=== PATIENT | female | born 1970 | race Caucasian/White ===

== ENCOUNTER → 2016-12-18 | Outpatient (CLI) | payer OTHER ==
[2016-11-09 12:59] VITALS: BP 128/89
--- NOTE | 2016-12-18 09:27 | RAD ---
Right hip two views Indication: Right hip pain. 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 Enthesopathy of the great er trochanter noted. There is no cortical lucency or malalignment. Impression: No acute right hip fracture. Mild degenerative changes. Reported By:
--- NOTE | 2016-12-18 09:34 | RAD ---
HISTORY: Nontraumatic right knee pain, chronic Study: Right knee three view Comparison: None Findings: There is no evidence for acute bone or acute joint abnormality. No fracture, lytic, or blastic lesio n is identified. No joint erosion or joint effusion is present. There is mild degenerative medial co mpartment narrowing. IMPRESSION: Mild degenerative medial compartment narrowing Reported By:
== END ==
LOC: RAD 08:53
PROVIDERS: ATTEND Internal Medicine
DX: Z02.71 Encounter for disability determination (principal)
CPT/HCPCS: 73501; 73560

== ENCOUNTER 2017-07-04 20:20 | Emergency (ER) | payer SELFPAY ==
[2017-07-04 20:41] VITALS: BP 134/89; BMI 29.2
[2017-07-04] MEDS ORDERED: BACTRIM DS TAB PO ONE ×2 (23:06→23:16)
[2017-07-04] MEDS ORDERED: ROCEPHIN VIAL 1 GM IM ONE (23:06)
[2017-07-04] MEDS ORDERED: TORADOL 60 MG VIAL IM ONE (23:07)
--- NOTE | 2017-07-04 23:11 | DR.GENAD ---
HPI - PCP Primary Care Physician: NFD - Complaint/Symptoms Chief Complaint Doctors Comments: Patient complains of red raised area on the right side for her abdomen for the past four days getting worst with scant drainage at times. she has been usining neosporin ointment without improvement. states she had a similar lesion about a year ago that was staph infection and they keep coming back at different locations. She denies fever, chills, nausea or vomiting. States she do not have a local doctor. States her tetanus shot is up to date. Chief Complaint:: PATIENT HAS A RED AREA LOCATED ON THE RIGHT LOWER QUANDRANT OF ABDOMEN Self Treatment fo Chief Complaint: POLYSPORIN - Nurses notes reviewed Nurses Notes Review: Yes - Source History Provided: Patient - Mode of Arrival Mode of Arrival: Ambulatory - Timing Onset of Chief Complaint: 07/01/17 Came on: Gradually - Duration Duration: Constant How lon Duration: Days - Location Location: right abdominal walal - Severity Severity: Mild - Modifying Factors Worsens:: nothing Improves:: nothing PMH - PMH Past Medical History: Yes Past Medical History: Arthritis, Headaches Past Medical History Comment: UTI, WEAK BLADDER Past Surgical History: Yes Surgical History: Cholecystectomy, 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, 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 Surgery - Family History History of Family Medical Conditions: Yes Family Medical History: Cancer, [place], Hypertension - Social History Does patient currently use any type of tobacco product: No Have you used tobacco products in the last 12 months: No Type of Tobacco Use: None How many years tobacco product used: 3 Alcohol Use: None Do you use any recreational Drugs:: No Lives With: Spouse Lives Where: Home - infectious screening In the last 2 months have you had wt loss of >10#?: NO Have you had fever, night sweats or hemotysis?: No Have you traveled outside the country in the last 6 months?: No Isolation: Standard ROS - Review of Systems Constitutional: No Symptoms Reported. negative: See HPI, Chills, Diaphoresis, Fever, Malaise, Weakness, Irritable, Fatigue, Loss of Appetite, Other Eyes: No Symptoms Reported ENTM: No Symptoms Reported. negative: See HPI, Ear Pain, Ear Discharge, Pulling on Ears, Hearing Loss, Nose Pain, Nose Discharge, Epistaxis, Nose Congestion, Mouth Pain, Mouth Swelling, Loose Teeth, Drooling, Throat Pain, Throat Swelling, Ear Foreign Body Respiratoy: No Symptoms Reported. negative: See HPI, Productive Cough, Non- Productive Cough, Moist Cough, Dry Cough, Hacking Cough, Barking Cough, Brassy Cough, Orthopnea, Short of Breath, Stridor, Wheezing, Hemoptysis, Other Cardiovascular: No Symptoms Reported Gastrointestinal/Abdominal: No Symptoms Reported, Abdominal Pain (right anterior abdominal wall pain). negative: See HPI, Constipation, Diarrhea, Nausea, Vomiting, Food Intolerance, Other Genitourinary: No Symptoms Reported. negative: See HPI, Discharge, Dysuria, Frequency, Hematuria, Pain, Bleeding, Other Neurological: No Symptoms Reported. negative: See HPI, Anxiety, Depressed, Emotional Problems, Headache, Numbness, Paresthesia, Pre-existing Deficit, Seizure, Tingling, Tremors, Weakness, Dizziness, Problems Walking, Speech Problem, Other Musculoskeletal: No Symptoms Reported Integumentary: No Symptoms Reported, Change in Color, Lesions (right abdominal 4 cm pustular lesion) Hematologic/Lymphatic: No Symptoms Reported. negative: See HPI, Anemia, Blood Clots, Easy Bleeding, Easy Bruising, Swollen Glands, Lymphadenopathy, Other Endocrine: No Symptoms Reported Psychiatric: No Symptoms Reported. negative: See HPI, Anxiety, Depression, Hallucinations, Excessive crying, Suicidal, Other PE - Vital Signs Vitals: Temperature 97.8 F Pulse Rate 86 Respiratory Rate 20 Blood Pressure [Left Arm] 128/89 Blood Pressure 134/89 O2 Sat by Pulse Oximetry 100 - General Limitations: No Limitations General Appearance: Alert, In No Apparent Distress - Head Head Exam: Normal Inspection, Atraumatic, Normocephalic - Eyes Eye exam: Normal Appearance, PERRL, EOMI. negative: Scleral Icterus, Conjunctival Injection, Nystagmus, Miosis, Mydrasis, Periorbital Swelling, Periorbital Tenderness, Other - ENT ENT Exam: Normal Exam, Normal Oropharynx, Normal External Ear Exam, Mucous Membranes Moist, TM's Normal Bilaterally External Ear Exam: Normal External Inspection TM/Canal Exam: Bilateral Normal Nose Exam: Normal Nose Exam Mouth Exam: Normal Inspection Throat Exam: Normal Inspection. negative: Tonsillar Erythema, Tonsillomegaly, Tonsillar Exudate, R Peritonsillar Mass, L Peritonsillar Mass, Muffled Voice, Other - Neck Neck Exam: Normal Inspection, Full ROM, Trachea Midline. negative: Tenderness, Meningismus, Lymphadenopathy, Thyromegaly, Other - Chest Chest Inspection: Normal Inspection, Symmetric Chest Wall Rise. negative: Tenderness, Rash, Abscess, Other - Respiratory Respiratory Exam: Normal Lung Sounds Bilat Respiratory Exam: Bilateral Clear to Auscultation - Cardiovascular Cardiovascular Exam: Regular Rate, Normal Rhythm, Normal Heart Sounds. negative : Bradycardia, Tachycardia, Irregular Rhythm, Systolic Murmur, Diastolic Murmur , Rubs, Gallop, Clicks, JVD, +S1, +S2, +S3, +S4, Other - Abdominal Exam Abdominal Exam: Normal Inspection, Normal Bowel Sounds, Soft, Other (right hypogastric abdomnal wall wtih 4 cm pustular lesion with erythema; erythema anterior abdominal area; no discharge) Abdominal Tenderness: RUQ, Mild - Extremities Extremities Exam: Normal Inspection, Full ROM, Normal Capillary Refill. negative: Tenderness, Edema, Joint Swelling, Calf Tenderness, Other - Back Back Exam: Normal Inspection, Full ROM. negative: Tenderness, (R) CVA Tenderness, (L) CVA Tenderness, Muscle Spasm, Paraspinal Tenderness, Vertebral Tenderness, Rashes, (R) Sciatic Notch Tenderness, (L) Sciatic Notch Tendern, (R ) Straight Leg Raise, (L) Straight Leg Raise, Other - Neurologic Neurological Exam: Alert, Oriented X3, CN II-XII Intact, Normal Gait - Psychiatric Psychiatric Exam: Normal Affect, Normal Mood. negative: Depressed, Agitated, Anxious, Flat Affect, Manic, Homicidal Ideation, Suicidal Ideation, Other - Skin Skin Exam: Warm, Dry, Intact, Normal Color - Diagnosis Discharge Problem: Cellulitis of right abdominal wall, Furuncle - Discharge Plan Disposition: 01 HOME, SELF-CARE Condition: Stable Prescriptions: Cephalexin [KEFLEX CAP 500 MG *] 500 mg PO TID #30 cap Ibuprofen 800 mg PO TID PRN #30 tablet PRN Reason: Pain/Inflammation Mupirocin Oint [BACTROBAN OINT 2%] 1 applic EXT BID #22 gm Sulfamethoxazole-Trimethoprim [BACTRIM DS TAB 800/160 MG *] 1 tab PO BID #20 tab - Follow ups/Referrals Follow ups/Referrals: NFD,None [Primary Care Provider] - 3 days BRIANNA THAKUR [STAFF PHYSICIAN] - 3 days - Instructions Instructions: Cellulitis, Adult, [id number], Contact Precautions, Community- Associated MRSA
[2017-07-04] MEDS ORDERED: TORADOL 60 MG VIAL ONE (23:15)
[2017-07-04] MEDS ORDERED: ROCEPHIN VIAL 1 GM ONE (23:16)
== END 2017-07-04 23:29 | disposition home or self-care (01) ==
LOC: ER 20:20
DX: L03.311 Cellulitis of abdominal wall (principal); L02.92 Furuncle, unspecified
CPT/HCPCS: 96372; 99282; J0696; J1885

== ENCOUNTER 2022-09-12 07:55 | Observation (INO) ==
[2022-09-12 08:07] VITALS: BMI 29.2
[2022-09-12] MEDS ORDERED: NS 1,000 ML IV 1,000 ML ONE (08:09)
[2022-09-12] MEDS ORDERED: ZOFRAN INJ 4 MG VIAL ONE ×2 (08:09→12:20)
[2022-09-12] MEDS ORDERED: NS 1,000 ML IV 1,000 ML IV ONE (08:11)
[2022-09-12] MEDS ORDERED: ZOFRAN INJ 4 MG VIAL IVP ONE ×2 (08:12→12:15)
[2022-09-12] MEDS ORDERED: ATIVAN INJ 2 MG VIAL IVP ONE (08:12)
--- NOTE | 2022-09-12 08:14 | DR.NAUSEAF ---
HPI Time Seen Time Seen by Provider: 09/12/22 08:11 Primary Care Physician Primary Care Physician: NFD Complaints Chief Complaint Doctors Comments: 52 y/o female presents for evaluation. Ill x 2 days, + nausea, vomiting, abdominal cramping. No diarrhea. Having diffuse abdominal pain, worse of the epigastric region. + cramping, does not radiate. Nothing makes it better, nothing makes it worse. Denies fever, URI symptoms. Chief Complaint:: C/O N/V AND CRAMPING IN STOMACH X2 DAYS; STATES SHE MAY HAVE FOOD POISONING; STATES SHE ATE SOME SHRIMP 2 DAYS AGO AND HAS BEEN SICK EVER SINCE. PT INDICATES PAIN IS EPIGASTRIC TO LEFT AND RIGHT SIDE; PT IS NOT RELIEVED OR WORSENED BY ANYTHING. LAST BM WAS THIS MORNING AND WAS NORMAL Self Treatment fo Chief Complaint: PEPTO BISMOL COVID-19 Coronavirus risk:travel/contact w/high risk person: No Has patient experienced Coronavirus symptoms: No Reviewed Nurses Notes Reviewed: Yes Source History Provided: Patient Mode of Arrival Mode of Arrival: Wheelchair Timing Onset of Chief Complaint: 09/10/22 PMH PMH Past Medical History: Yes Past Medical History: Anemia, Arthritis and Renal Disease Past Medical History Comment: WEAK BLADDER, "HEART TREMORS" Past Surgical History: Yes Surgical History: Cholecystectomy and Other Family History History of Family Medical Conditions: Yes Family Medical History: Cancer and Hypertension Social History Does any household member use tobacco: No Alcohol Use: None Do you use any recreational Drugs:: No Lives With: Spouse and Family Lives Where: Home Travel Risk Coronavirus risk:travel/contact w/high risk person: No Has patient experienced Coronavirus symptoms: No Infectious screening In the last 2 months have you had wt loss of >10#?: NO Have you had fever, night sweats or hemotysis?: No Have you traveled outside the country in the last 6 months?: No Isolation: Standard ROS Review of Systems Constitutional: Weakness Eyes: No Symptoms Reported ENTM: No Symptoms Reported Respiratoy: No Symptoms Reported Cardiovascular: No Symptoms Reported Gastrointestinal/Abdominal: Abdominal Pain, Nausea and Vomiting Genitourinary: No Symptoms Reported Neurological: Weakness Musculoskeletal: No Symptoms Reported Integumentary: No Symptoms Reported Hematologic/Lymphatic: No Symptoms Reported Psychiatric: No Symptoms Reported All Other Systems: Reviewed and Negative PE Vital Signs Vitals: Temperature 98.0 F Pulse Rate 69 Respiratory Rate 20 Blood Pressure [Left Arm] 129/76 Blood Pressure 145/67 O2 Sat by Pulse Oximetry 96 General General Appearance: Alert and Other (appears uncomfortable) Eyes Eye exam: PERRL and EOMI ENT ENT Exam: Normal Oropharynx and Mucous Membranes Moist Neck Neck Exam: Normal Inspection Respiratory Respiratory Exam: Normal Lung Sounds Bilat; negative Accessory Muscle Use or Respiratory Distress Cardiovascular Cardiovascular Exam: Regular Rate, Normal Rhythm and Normal Heart Sounds Abdominal Exam Abdominal Exam: Normal Bowel Sounds, Soft and Tenderness (epigastric area) Extremities Extremities Exam: Normal Inspection and Full ROM; negative Edema Neurologic Neurological Exam: Alert, Oriented X3 and CN II-XII Intact; negative Motor Sensory Deficit Psychiatric Psychiatric Exam: Normal Affect Skin Skin Exam: Warm and Dry COURSE Treatment Treatment: 52 y/o female with 2 days of N/V, upper abdominal pain. W/u initiated. Given IV fluids, IV zofran/ativan. 1235 - labs overall acceptable, + TNTC WBCs in urine, c/w UTI. Given IV rocephin. CT abd/pelvis with IV contrast shows marked thickening of small bowel/ileum. Concern for infectious, in flammatory, orischemic bowel. Added lactic acid, normal. Recommend admission for further treatment/evaluation. Pt given IV morphine/zofran. Will treat with IV levaquin/flagyl for acute enteritis. Discussed with Dr Raya (covering for Dr Ojeda), accepts the admisison. Will consult with surgery, Dr Jeffery. ROR Labs Reviewed Result Diagrams: 09/12/22 08:15 09/12/22 08:15 Laboratory: WBC 14.0 X10^3/uL (3.6-10.0) H 09/12/22 08:15 RBC 5.38 X10^6/uL (3.5-5.4) 09/12/22 08:15 Hgb 14.4 g/dL (12.0-16.0) 09/12/22 08:15 Hct 43.9 % (36.0-47.0) 09/12/22 08:15 MCV 81.6 fL (80.0-100.0) 09/12/22 08:15 MCH 26.7 pg (27.0-34.0) L 09/12/22 08:15 MCHC 32.7 g/dL (33.0-35.0) L 09/12/22 08:15 RDW 15.2 % (11.6-16.5) 09/12/22 08:15 Plt Count 387 X10^3/uL (150.0-450.0) 09/12/22 08:15 MPV 9.5 fL (7.4-11.0) 09/12/22 08:15 Neut % (Auto) 71.8 % (42.0-75.0) 09/12/22 08:15 Lymph % (Auto) 10.7 % (21.0-51.0) L 09/12/22 08:15 [place] % (Auto) 6.7 % (0.0-13.0) 09/12/22 08:15 Eos % (Auto) 10.0 % (0.9-2.9) H 09/12/22 08:15 Baso % (Auto) 0.8 % (0.2-1.0) 09/12/22 08:15 Neut # (Auto) 10.1 x10^3/uL (2.2-4.8) H 09/12/22 08:15 Lymph # (Auto) 1.5 X10^3/uL (1.3-2.9) 09/12/22 08:15 [place] # (Auto) 0.9 x10^3/uL (0.3-0.8) H 09/12/22 08:15 Eos # (Auto) 1.4 x10^3/uL (0.0-0.2) H 09/12/22 08:15 Baso # (Auto) 0.1 X10^3/uL (0.0-0.1) 09/12/22 08:15 Absolute Nucleated RBC 0.0 /100WBC 09/12/22 08:15 Sodium 138 mmol/L (136-145) 09/12/22 08:15 Corrected Sodium 139 mmol/L (136-145) 09/12/22 08:15 Potassium 3.8 mmol/L (3.5-5.1) 09/12/22 08:15 Chloride 101 mmol/L (98-107) 09/12/22 08:15 Carbon Dioxide 25.6 mmol/L (21-32) 09/12/22 08:15 BUN 9 mg/dL (7-18) 09/12/22 08:15 Creatinine 0.65 mg/dL (0.55-1.02) 09/12/22 08:15 Est GFR (MDRD) Af Amer > 60 (>60) 09/12/22 08:15 Est GFR (MDRD) Non-Af > 60 (>60) 09/12/22 08:15 Glucose 133 mg/dL (65-99) H 09/12/22 08:15 Lactic Acid 0.7 mmol/L (0.4-2.0) 09/12/22 11:55 Calcium 9.0 mg/dL (8.5-10.1) 09/12/22 08:15 Corrected Calcium TNP 09/12/22 08:15 Phosphorus 2.8 mg/dL (2.6-4.7) 09/12/22 08:15 Magnesium 1.7 mg/dL (2.0-2.9) L 09/12/22 08:15 Total Bilirubin 0.40 mg/dL (0.2-1.0) 09/12/22 08:15 AST 19 Units/L (15-37) 09/12/22 08:15 ALT 20 Units/L (12-78) 09/12/22 08:15 Alkaline Phosphatase 83 Units/L (46-116) 09/12/22 08:15 Total Protein 7.9 g/dL (6.4-8.2) 09/12/22 08:15 Albumin 3.7 g/dL (3.4-5.0) 09/12/22 08:15 Globulin 4.2 g/dL (2.5-4.5) 09/12/22 08:15 Albumin/Globulin Ratio 0.9 Ratio (1.1-2.1) L 09/12/22 08:15 Lipase 142 Units/L (73-393) 09/12/22 08:15 Specimen Type Clean catch urine 09/12/22 08:23 Urine Color Dark yellow (YELLOW) 09/12/22 08:23 Urine Appearance Hazy (CLEAR) 09/12/22 08:23 Urine pH 5.0 (5.0 - 8.0) 09/12/22 08:23 Ur Specific [place] 1.030 (1.000-1.030) 09/12/22 08:23 Urine Protein 3+ (NEGATIVE) 09/12/22 08:23 Urine Glucose (UA) Negative (NEGATIVE) 09/12/22 08:23 Urine Ketones 1+ (NEGATIVE) 09/12/22 08:23 Urine Blood 3+ (NEGATIVE) 09/12/22 08:23 Urine Nitrite Positive (NEGATIVE) 09/12/22 08:23 Urine Bilirubin 2+ (NEGATIVE) 09/12/22 08:23 Urine Urobilinogen 1+ (NORMAL) 09/12/22 08:23 Ur Leukocyte Esterase 3+ (NEGATIVE) 09/12/22 08:23 Urine RBC 10-20 /HPF (0-3) A 09/12/22 08:23 Urine WBC Tntc /HPF (0-5) A 09/12/22 08:23 Ur Squamous Epith Cells Numerous /HPF (NEGATIVE) 09/12/22 08:23 Urine Bacteria 4+ /HPF (NEGATIVE) 09/12/22 08:23 Ur Culture Indicated? Yes/culture set up 09/12/22 08:23 Opioid Opioid Risk Tool Age (Martin box if 16-45): No History of Preadolescent Sexual Abuse: No Total: 0 Total Score Risk Category: Low Risk Copyright: Allan RENDON predicting aberrant behaviors Discharge Plan Diagnosis Discharge Problem: Enteritis, Acute UTI Discharge Plan Patient Disposition: 09 ADMITTED INPATIENT Condition: Stable Orders to Discharge Patient Discharge Orders: Transfer (Routine); Ordered 09/12/22 Ordered By: Aleksandr Brock
[2022-09-12] MEDS ORDERED: ATIVAN INJ 2 MG VIAL ONE (08:22)
[2022-09-12 08:27] LABS: BASOPHILS # (AUTO) 0.1 X10^3/uL (0.0-0.1); BASOPHILS % (AUTO) 0.8 % (0.2-1.0); EOSINOPHILS # (AUTO) 1.4 x10^3/uL (0.0-0.2); HEMATOCRIT 43.9 % (36.0-47.0); HEMOGLOBIN 14.4 g/dL (12.0-16.0); LYMPHOCYTES # (AUTO) 1.5 X10^3/uL (1.3-2.9); LYMPHOCYTES % (AUTO) 10.7 % (21.0-51.0); MEAN CORPUSCULAR HEMOGLOBIN 26.7 pg (27.0-34.0); MEAN CORPUSCULAR HGB CONC 32.7 g/dL (33.0-35.0); MEAN CORPUSCULAR VOLUME 81.6 fL (80.0-100.0); MEAN PLATELET VOLUME 9.5 fL (7.4-11.0); MONOCYTES # (AUTO) 0.9 x10^3/uL (0.3-0.8); MONOCYTES % (AUTO) 6.7 % (0.0-13.0); NEUTROPHILS # (AUTO) 10.1 x10^3/uL (2.2-4.8); NEUTROPHILS % (AUTO) 71.8 % (42.0-75.0); RED BLOOD COUNT 5.38 X10^6/uL (3.5-5.4); RED CELL DISTRIBUTION WIDTH 15.2 % (11.6-16.5)
[2022-09-12 08:39] LABS: BILIRUBIN,URINE 2+ (NEGATIVE); BLOOD/HEMOGLOBIN,URINE 3+ (NEGATIVE); GLUCOSE, URINE NEGATIVE (NEGATIVE); KETONES,URINE 1+ (NEGATIVE); LEUKOCYTE ESTERASE ,URINE 3+ (NEGATIVE); NITRITES,URINE POSITIVE (NEGATIVE); PROTEIN,URINE 3+ (NEGATIVE); UROBILINOGEN,URINE 1+ (NORMAL)
[2022-09-12 08:44] LABS: ALANINE AMINOTRANSFERASE 20 Units/L (12-78); ALBUMIN 3.7 g/dL (3.4-5.0); ALKALINE PHOSPHATASE 83 Units/L (46-116); ASPARTATE AMINO TRANSFERASE 19 Units/L (15-37); BLOOD UREA NITROGEN 9 mg/dL (7-18); CARBON DIOXIDE 25.6 mmol/L (21-32); CHLORIDE 101 mmol/L (98-107); COR NA(FOR HYPERGLY) 139 mmol/L (136-145); CREATININE 0.65 mg/dL (0.55-1.02); LIPASE 142 Units/L (73-393); MAGNESIUM 1.7 mg/dL (2.0-2.9); PHOSPHORUS 2.8 mg/dL (2.6-4.7); SODIUM 138 mmol/L (136-145); TOTAL PROTEIN 7.9 g/dL (6.4-8.2); eGFR NON BLACK RACES > 60 (>60)
[2022-09-12 08:49] LABS: APPEARANCE,URINE HAZY (CLEAR); COLOR,URINE DARK YELLOW (YELLOW)
[2022-09-12 08:57] LABS: BACTERIA,URINE 4+ /HPF (NEGATIVE); SQUAMOUS EPITHELIAL CELL,UR NUMEROUS /HPF (NEGATIVE)
[2022-09-12] MEDS ORDERED: ROCEPHIN VIAL 1 GRAM 1 G in NS 100 ML IV 100 ML IV ONE (09:03)
[2022-09-12] MEDS ORDERED: ROCEPHIN VIAL 1 GRAM ONE (09:06)
[2022-09-12] MEDS ORDERED: NS 100 ML IV 100 ML ONE (09:06)
--- NOTE | 2022-09-12 11:50 | CT ---
HISTORYAbdominal pain, nausea, vomitingSTUDYCT abdomen pelvis with contrastTechnique: Axial post-contrast images with coronal and sagittal reformats. Dose reduction procedures were used with mA/kv adjusted for body size.[id number] lung bases are clear. There is a small hiatal hernia present. There is minimal peritoneal fluid present best visualized along the right hepatic margin and in the lower abdomen and pelvis. The liver is normal in size and configuration and without definite focal space-occupying disease. Patient is status post cholecystectomy. The spleen is minimally enlarged. The adrenal glands and pancreas are within normal limits. The kidneys are unobstructed and without stones or masses. There is cortical scarring involving the upper pole of the right kidney likely post traumatic. There is also some scarring along the right lateral lower pole. There is a duplex right upper collecting system with unobstructed ureters that join in the mid abdominal level. No ureteral calculi are identified. The appendix is normal. Abdominal aorta is normal. No intraperitoneal or retroperitoneal lymphadenopathy of significance is identified. There are no findings suggestive of colitis or diverticulitis. The jejunum appears normal. However there is diffuse transmural thickening, mucosal enhancement, and straightening of the supplying Vasa recta involving a large portion of the ileum from mid ileum through the terminal ileum. Findings are suggestive of a relatively severe acute enteritis. This could be infectious, inflammatory such as might be seen with Crohn's disease or ischemic in origin. There is no evidence for a pneumatosis or portal venous gas. The peritoneal fluid discussed above is likely related to the inflammatory process present. Examination of the pelvis demonstrated no evidence for pelvic masses, pelvic pelvic lymphadenopathy. The uterus is enlarged and demonstrates thickening of the endometrium. In a postmenopausal patient this is abnormal and should be evaluated with a STONEMASON consult in order to determine if tissue sampling is required. If the patient is not postmenopausal correlation with menstrual cycle is recommended. No lytic or blastic skeletal lesions of significance are identified.IMPRESSIONAbnormal ileum from the proximal ileum through the terminal ileum demonstrating changes suggestive of acute enteritis which could be infectious, inflammatory, or ischemic in origin. Ischemic enteritis should clinically excluded.Small amount of intraperitoneal fluid likely related to the severe enteritis present.Mildly enlarged uterus with a thickened endometrium. See discussion and recommendations as above.Findings were discussed at length with Dr. Brock 09/12/2022 11:46 a.m.Small hiatal herniaElectronically signed by: MOJGAN LebronSep 12, 2022 11:49:15)
[2022-09-12] MEDS ORDERED: MORPHINE SULFATE INJ 4 MG IVP ONE (12:15)
[2022-09-12] MEDS ORDERED: MORPHINE SULFATE INJ 4 MG ONE (12:20)
[2022-09-12] MEDS ORDERED: FLAGYL IV PREMIX 500 MG BAG 500 MG/100 ML BAG IV ONE ×2 (13:31→13:46)
[2022-09-12] MEDS ORDERED: LEVAQUIN PREMIX IV 750 MG 750 MG/150 ML BAG IV ONE (13:31)
[2022-09-12] MEDS ORDERED: D5 1/2 NS 1,000 ML 1,000 ML IV ONE (13:46)
[2022-09-12] MEDS ORDERED: D5 1/2 NS 1,000 ML 1,000 ML IV SCH (14:00)
[2022-09-12] MEDS ORDERED: MORPHINE SULFATE INJ 4 MG IVP PRN (14:39)
[2022-09-12] MEDS ORDERED: ZOFRAN INJ 4 MG VIAL IVP PRN (14:39)
[2022-09-12] MEDS: FLAGYL IV PREMIX 500 MG BAG 500 MG/100 ML BAG IV SCH (21:24)
[2022-09-13 07:06] LABS: ALANINE AMINOTRANSFERASE 15 Units/L (12-78); ALBUMIN 2.9 g/dL (3.4-5.0); ALKALINE PHOSPHATASE 67 Units/L (46-116); ASPARTATE AMINO TRANSFERASE 16 Units/L (15-37); BLOOD UREA NITROGEN 6 mg/dL (7-18); CALCIUM 8.1 mg/dL (8.5-10.1); CARBON DIOXIDE 27.7 mmol/L (21-32); CHLORIDE 106 mmol/L (98-107); CREATININE 0.51 mg/dL (0.55-1.02); MAGNESIUM 1.8 mg/dL (2.0-2.9); SODIUM 141 mmol/L (136-145); eGFR NON BLACK RACES > 60 (>60)
[2022-09-13 07:16] LABS: BASOPHILS # (AUTO) 0.1 X10^3/uL (0.0-0.1); BASOPHILS % (AUTO) 0.7 % (0.2-1.0); EOSINOPHILS # (AUTO) 1.3 x10^3/uL (0.0-0.2); EOSINOPHILS % (AUTO) 15.1 % (0.9-2.9); LYMPHOCYTES # (AUTO) 1.5 X10^3/uL (1.3-2.9); LYMPHOCYTES % (AUTO) 18.3 % (21.0-51.0); MEAN CORPUSCULAR HEMOGLOBIN 26.8 pg (27.0-34.0); MEAN CORPUSCULAR HGB CONC 32.5 g/dL (33.0-35.0); MEAN CORPUSCULAR VOLUME 82.4 fL (80.0-100.0); MEAN PLATELET VOLUME 9.1 fL (7.4-11.0); MONOCYTES # (AUTO) 0.7 x10^3/uL (0.3-0.8); MONOCYTES % (AUTO) 8.3 % (0.0-13.0); NEUTROPHILS # (AUTO) 4.8 x10^3/uL (2.2-4.8); NEUTROPHILS % (AUTO) 57.6 % (42.0-75.0); RED BLOOD COUNT 4.49 X10^6/uL (3.5-5.4); RED CELL DISTRIBUTION WIDTH 14.8 % (11.6-16.5); WHITE BLOOD COUNT 8.4 X10^3/uL (3.6-10.0)
[2022-09-13] MEDS: LEVAQUIN PREMIX IV 750 MG 750 MG/150 ML BAG IV SCH (09:36)
[2022-09-13] MEDS ORDERED: NS 100 ML IV 100 ML ONE (09:39)
[2022-09-13] MEDS: FLAGYL IV PREMIX 500 MG BAG 500 MG/100 ML BAG IV SCH ×2 (11:29→21:09)
[2022-09-13] MEDS ORDERED: NS 250 ML IV 0 ML IV ONE (19:08)
[2022-09-13] MEDS: MAGNESIUM SULFATE 1 GRAM/100 mL PREMIX 1 G/100 ML BAG IV PRN ×2 (21:09→23:02)
[2022-09-13] MEDS ORDERED: NS 500 ML IV 500 ML IV PRN (21:56)
[2022-09-14 05:49] LABS: BASOPHILS # (AUTO) 0.1 X10^3/uL (0.0-0.1); BASOPHILS % (AUTO) 1.2 % (0.2-1.0); EOSINOPHILS # (AUTO) 1.6 x10^3/uL (0.0-0.2); EOSINOPHILS % (AUTO) 15.5 % (0.9-2.9); HEMATOCRIT 37.1 % (36.0-47.0); HEMOGLOBIN 12.4 g/dL (12.0-16.0); LYMPHOCYTES # (AUTO) 1.6 X10^3/uL (1.3-2.9); LYMPHOCYTES % (AUTO) 16.2 % (21.0-51.0); MEAN CORPUSCULAR HEMOGLOBIN 27.4 pg (27.0-34.0); MEAN CORPUSCULAR HGB CONC 33.4 g/dL (33.0-35.0); MEAN CORPUSCULAR VOLUME 82.1 fL (80.0-100.0); MEAN PLATELET VOLUME 9.6 fL (7.4-11.0); MONOCYTES # (AUTO) 0.8 x10^3/uL (0.3-0.8); MONOCYTES % (AUTO) 7.7 % (0.0-13.0); NEUTROPHILS # (AUTO) 5.9 x10^3/uL (2.2-4.8); NEUTROPHILS % (AUTO) 59.4 % (42.0-75.0); RED BLOOD COUNT 4.52 X10^6/uL (3.5-5.4); RED CELL DISTRIBUTION WIDTH 14.6 % (11.6-16.5)
[2022-09-14 06:09] LABS: ALANINE AMINOTRANSFERASE 15 Units/L (12-78); ALKALINE PHOSPHATASE 71 Units/L (46-116); ASPARTATE AMINO TRANSFERASE 16 Units/L (15-37); BLOOD UREA NITROGEN 6 mg/dL (7-18); CALCIUM 8.2 mg/dL (8.5-10.1); CARBON DIOXIDE 25.7 mmol/L (21-32); CHLORIDE 105 mmol/L (98-107); MAGNESIUM 2.1 mg/dL (2.0-2.9); SODIUM 140 mmol/L (136-145); TOTAL PROTEIN 6.4 g/dL (6.4-8.2); eGFR NON BLACK RACES > 60 (>60)
[2022-09-14] MEDS: FLAGYL IV PREMIX 500 MG BAG 500 MG/100 ML BAG IV SCH (08:48)
[2022-09-14] MEDS: LEVAQUIN PREMIX IV 750 MG 750 MG/150 ML BAG IV SCH (10:14)
[2022-09-14 13:01] VITALS: BP 144/68
== END 2022-09-14 14:44 | disposition home or self-care (01) ==
LOC: MED/SURG 07:55 → ER 07:55 → MED/SURG 13:57
PROVIDERS: ADMIT Internal Medicine; ATTEND Internal Medicine
DX: B96.1 Klebsiella pneumoniae [K. pneumoniae] as the cause of diseases classified elsewhere; K44.9 Diaphragmatic hernia without obstruction or gangrene; N85.2 Hypertrophy of uterus; K52.89 Other specified noninfective gastroenteritis and colitis; R10.13 Epigastric pain; N39.0 Urinary tract infection, site not specified; R10.84 Generalized abdominal pain; R11.2 Nausea with vomiting, unspecified